=== PATIENT | female | born 1980 | race Two or more races ===

== ENCOUNTER 2018-04-07 17:38 | Emergency (ER) | payer OTHER ==
[~2018-04-07] VITALS: Ht 157.5 cm; Wt 181.4 kg
[~2018-04-07 17:38] MED LIST: LOSARTAN POTASS50 MG; PULMICORT1 MG/2 ML
[2018-04-07] MEDS ORDERED: MEDROLPACK PO (22:03)
[2018-04-07] MEDS ORDERED: NEURONTIN300 MG PO (22:03)
== END 2018-04-07 22:25 | disposition home or self-care (01) ==
LOC: ER 17:38
DX: G62.9 Polyneuropathy, unspecified (principal); R20.3 Hyperesthesia; I10 Essential (primary) hypertension

== ENCOUNTER 2018-05-10 09:50 | Emergency (ER) | payer OTHER ==
[~2018-05-10] VITALS: Ht 157.5 cm; Wt 154.2 kg
[~2018-05-10 09:50] MED LIST changes: +MEDROLPACK PO; +NEURONTIN300 MG PO
== END 2018-05-10 16:51 | disposition home or self-care (01) ==
LOC: ER 09:50
DX: H70.001 Acute mastoiditis without complications, right ear (principal)

== ENCOUNTER → 2018-05-18 08:00 | Outpatient (CLI) | payer OTHER | END | disposition home or self-care (01) | LOC: ADM 05-14 09:45 → EKG 08:00 → ADM 15:15 → CIR.AMB 05-25 11:15 → EDSTATUS 05-25 15:15 | DX: R22.1 Localized swelling, mass and lump, neck (principal); Z01.810 Encounter for preprocedural cardiovascular examination ==